=== PATIENT | male | born 1995 | race Hispanic/Latino ===

== ENCOUNTER 2017-08-04 08:59 | Emergency (ER) | payer SELFPAY ==
[~2017-08-04] VITALS: Ht 167.6 cm; Wt 86.2 kg
[2017-08-04] MEDS ORDERED: PANTOPRAZOLE SO40 MG PO (10:16)
[2017-08-04] MEDS ORDERED: DICYCLOMINE HCL10 MG PO (10:16)
--- NOTE | 2017-08-04 20:35 | EKG ---
[facility] [address] [facility] [place] [address] Signed Normal sinus rhythm with sinus arrhythmia Normal ECG No previous ECGs available Confirmed by FANI CHUN MD ([id number]) on 08/04/2017 8:35:22 PM Electronically Signed By: FANI CHUN MD 08/04/17 2035 PATIENT NAME: ISACC JOHNSON Electrocardiogram DATE OF : [birth year] PHYSICIAN: FANI CHUN MD REPORT #: [id number] REPORT IS CONFIDENTIAL AND NOT TO BE RELEASED WITHOUT AUTHORIZATION
== END 2017-08-04 10:30 | disposition home or self-care (01) ==
LOC: ED 08:59
DX: K29.70 Gastritis, unspecified, without bleeding (principal); Z88.0 Allergy status to penicillin
CPT/HCPCS: 71045; 80053; 83690; 84484; 85025; 93005; 93010; 96374; 96375; 99284; J1885

== ENCOUNTER 2017-08-08 06:41 | Observation (INO) | payer SELFPAY ==
[~2017-08-08] VITALS: Ht 167.6 cm; Wt 86.4 kg
[~2017-08-08 06:41] MED LIST: DICYCLOMINE HCL10 MG PO; PANTOPRAZOLE SO40 MG PO
--- NOTE | 2017-08-08 14:55 | NUR ---
REPORT FROM KATHERIN ANN IN E.D. PT TO ROOM 111 AT THIS TIME. PT ALERT AND ORIENTED. PT UP AMBULATED TO BATHROOM INDEPENDENTLY VOIDED WELL. PT RATES PAIN 4/10 HE STATES THAT IS TOLERATED FOR HIM AT THIS TIME.
--- NOTE | 2017-08-08 16:37 | NUR ---
pt reports pain right upper abd 6/10 pain at this time. pt alert and oriented.
--- NOTE | 2017-08-08 18:20 | NUR ---
PT ADMITTED FROM [facility] THIS AFTERNOON. HE HAS BEEN PAINFUL DILAUDID I.V. ADMINSTERED. HERE TO SEE HIM AT THIS TIME, MD ORDERED PUBLIC RELATIONS SUPERVISOR. PLAN FOR SURGERY TOMORROW. HE IS INDEPENDENT IN ROOM, STABLE GAIT, CALLS APPROPRIATLY. HE IS ANXIOUS ABOUT SURGERY, THIS WILL BE HIS FIRST SURGERY. PT EDUCATION GIVEN. UNCLE IN ROOM SINCE ADMISSION. PT MOTHER FLYING IN FROM [place] TOMORROW. PT NPO AFTER MIDNIGHT. PLAN FOR SURGERY TOMORROW
--- NOTE | 2017-08-08 18:22 | NUR ---
PATIENT SITTING UP IN BED WATCHING TV WITH HIS DAD IN ROOM. PATIENT STATES THAT HE IS HUNGRY AND HE NEEDS TO EAT. CLEAR LIQUID TRAY ORDERED FOR PATIENT. FRESH ICE WATER GIVEN. CALL BUTTON IN REACH. NO OTHER NEEDS AT THIS TIME.
--- NOTE | 2017-08-08 19:20 | NUR ---
BEDSIDE REPORT RECEIVED FROM MARISSA MAURO. PT AWAKE, SITTING UP IN BED, RATES PAIN 8/10, VISITING WITH FAMILY. PT RECEIVED PRN DILAUDID IV 0.5 MG. PT CURRENTLY EATING CLEAR LIQUID TRAY. SCDS ON. IVF INFUSING WNL. CALL LIGHT IN REACH. NO REQUESTS AT THIS TIME.
--- NOTE | 2017-08-08 20:00 | NUR ---
PT ASSESSMENT COMPLETE AT THIS TIME, PT CONTINUES TO RATE PAIN 7-8/10 IN LUQ. ABDOMEN SOFT, NON-TENDER W PALPATION, NON-DISTENDED, BOWEL TONES ACTIVE X 4. LUNGS CLEAR THROUGHOUT. PT EDUCATION PROVIDED REGARDING MEDICATIONS, PT ANXIOUS, MINIMAL UNDERSTANDING OF MEDICATIONS, ASKING QUESTIONS. IV FLUSHED WNL. FLAGYL INFUSING. PRN NORCO 1 TABLET PO ADMINISTERED FOR PAIN. SBA TO RESTROOM FOR 350 ML VOID, BACK TO BED, SCDS ON. CALL LIGHT IN REACH.
--- NOTE | 2017-08-08 20:45 | NUR ---
IV FLAGYL COMPLETE. IVF INFUSING AT THIS TIME WNL. PT RATES PAIN 6/10 IN LUQ AT THIS TIME W GOAL OF 5/10. DENIES NAUSEA. SCDS ON. NO REQUESTS AT THIS TIME.
--- NOTE | 2017-08-08 22:14 | NUR ---
CHECKED ON PT. PT RATING PAIN 4/10 IN RIGHT FLANK, LUQ. IVF INFUSING WNL, GOOD BLOOD RETURN. NO REQUESTS AT THIS TIME, CALL LIGHT IN REACH. SCDS ON.
--- NOTE | 2017-08-09 00:16 | NUR ---
SBA TO RESTROOM FOR VOID AND BACK TO BED. PT C/O 10 UPPER ABD PAIN. PRN NORCO ADMINISTERED AT THIS TIME, PT NPO. PT C/O SOME NAUSEA, NO EMESIS. REFUSES PRN ZOFRAN AT THIS TIME "I'M FINE". CALL LIGHT IN REACH. IVF INFUSING, SCDS ON.
--- NOTE | 2017-08-09 02:20 | NUR ---
PT C/O 5-10 PAIN IN LUQ, PRN DILAUDID 0.5 MG IV ADMINISTERED WNL. IV HAS GOOD BLOOD RETURN. IV FLAGYL NOW INFUSING. SBA TO RESTROOM FOR VOID, BACK TO BED, SCDS ON. BOWEL TONES ACTIVE X4, ABDOMEN SOFT, NON-TENDER W PALPATION AT THIS TIME. LUNGS CLEAR THROUGHOUT ALL LOBES. HR REGULAR RHYTHM. CALL LIGHT IN REACH. LIGHTS OFF IN PT ROOM.
--- NOTE | 2017-08-09 03:00 | NUR ---
FLAGYL INFUSION COMPLETE. PT APPEARS TO BE SLEEPING, EYES CLOSED, BREATHING NON-LABORED. CALL LIGHT IN REACH. SCDS ON. IVF INFUSING.
--- NOTE | 2017-08-09 05:53 | NUR ---
PT C/O PAIN 7-8/10 IN LUQ. IV DILAUDID 1MG ADMINISTERED PRN. PT C/O NAUSEA, 8MG ZOFRAN ADMINISTERED VIA IV PUMP OVER 4 MINS. SBA TO RESTROOM AT THIS TIME. IVF INFUSING WNL.
--- NOTE | 2017-08-09 06:26 | NUR ---
PT NPO AT MIDNIGHT. BOWEL TONES ACTIVE X 4, ABDOMEN SOFT THROUGHOUT SHIFT. NO EMESIS. RECEIVED PRN ZOFRAN X 1 FOR PT REPORTED NAUSEA. PT RECEIVED PRN NORCO X2 AND IV DILAUDID X 2 FOR PAIN CONTROL. IVF INFUSING WNL THROUGHOUT SHIFT. SCDS ON. USING CALL LIGHT APPROPRIATELY. SBA TO RESTROOM FOR QUANTITY SUFFICIENT VOIDS. ANXIOUS RE SURGERY AND ASKING MANY QUESTIONS THROUGHOUT SHIFT, EDUCATION PROVIDED.
--- NOTE | 2017-08-09 07:46 | NUR ---
PATIENT HAS ABDOMINAL PAIN CURRENTLY AT A /, 1MG OF DILAUDID GIVEN IV AT THIS TIME. PATIENT IS ALERT AND ORIENTED AT THIS TIME, REPORT RECEIVED FROM GEOVANNA ANN. RHONDA SCHILLING AND MARK.
--- NOTE | 2017-08-09 08:11 | CONS ---
[facility] [address] [place], [place] [address] Signed DATE OF CONSULTATION: 08/08/2017 REFERRING PHYSICIAN: Kiet Wen DO CHIEF COMPLAINT: Left upper quadrant abdominal pain. HISTORY OF PRESENT ILLNESS: Isacc is a 22-year-old gentleman who is generally quite healthy; however, over the last week or so he has had trouble with rather significant left upper quadrant abdominal pain. He said it is worse after meals. He has been anorexic and unable to eat. He said to his recollection he has had some trouble for up to a year, but the last week or so it has been horrible. He came to emergency room on 08/04/2017, was evaluated and discharged home. He came back today because the pain was so persistent, and severe. White count was borderline 11. His other labs were fine. He had a CT scan done of the abdomen, and pelvis, and it showed the gallbladder full of stones and sludge with an unremarkable common bile duct, and unremarkable wall. There was no pericholecystic fluid. However, because of his pain, I was asked to admit him as a general surgeon on-call. He has been doing well with his IV pain medication. We gave him some Rocephin and Flagyl earlier today. PAST MEDICAL HISTORY: None. PAST SURGICAL HISTORY: None. SOCIAL HISTORY: He does not smoke or drink. 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 His mother is Vera Ambriz, phone #[phone], which I believe is [place]. He is single and has no children. Of course, he drives. He has no primary care provider. He prefers the [facility] in [place]. FAMILY HISTORY: Mom and dad and siblings are all healthy. REVIEW OF SYSTEMS: He had 10 systems reviewed and there was nothing new to add. ALLERGIES: Penicillin as a child. Electronically Signed By: SRIRAM SALAZAR MD 08/09/17 0811 PATIENT NAME: ISACC AMBRIZ CONSULTATION DATE OF : [birth year] REPORT #: [id number] PHYSICIAN: SRIRAM SALAZAR MD PCP: NO PRIMARY CARE PHYSICIAN REPORT IS CONFIDENTIAL AND NOT TO BE RELEASED WITHOUT AUTHORIZATION [facility] [address] [place], [place] [address] Signed MEDICATIONS: He was given Protonix and dicyclomine at his last ER visit. PHYSICAL EXAMINATION: VITAL SIGNS: Blood pressure 133/84, heart rate 67, respiratory rate 16, his temperature is 98.7. He is 99% on room air, he is 5 feet 6 inches, and weighs 86 kg. GENERAL: On exam, Isacc is a 22-year-old gentleman lying supine in his hospital bed, watching TV. He said he has been using the IV pain medication about every 2 hours. He is not jaundiced. LUNGS: Clear to auscultation bilaterally. HEART: Regular rate and rhythm and rhythm. Interestingly he is tender to deep palpation in the right upper quadrant with some mild tenderness in his left upper quadrant. LABORATORY DATA: His white blood count 11, hemoglobin 16, neutrophils 74, BUN 12, creatinine 0.8. AST 18, ALT 22, alkaline phosphatase 67, amylase 34, lipase 13. RADIOGRAPHIC STUDIES: A CT scan of abdomen, and pelvis is reviewed, and he has a gallbladder full of stones and sludge, but the gallbladder wall was not particularly thickened. The common bile duct was unremarkable, and there is no pericholecystic fluid. ASSESSMENT AND PLAN: Isacc is a 22-year-old gentleman who presents with beyub-jn-ioejeid cholecystitis, cholelithiasis. He has been admitted, given IV fluids, antibiotics, IV pain control as well. Overall, he is doing better. He said he is still a little dry, and his lips are certainly dry. I brought him a [employer] brochure on the gallbladder. We looked at that in detail. I explained to him the above findings with relationship to the gallbladder. We have reviewed laparoscopic versus open cholecystectomy. He understands, expected intraop and postop course, though are finished elective cases about just after five and they are now doing neurologic on-call urologic cases. Consequently, we are going to keep Isacc overnight. We will hydrate him with his pain control. We are going to add him on to our schedule 1st thing in the morning. He has expressed understanding, agrees about plan. Sriram Salazar MD ALB/MODL Electronically Signed By: SRIRAM SALAZAR MD 08/09/17 0811 PATIENT NAME: ISACC AMBRIZ CONSULTATION DATE OF : [birth year] REPORT #: [id number] PHYSICIAN: SRIRAM SALAZAR MD PCP: NO PRIMARY CARE PHYSICIAN REPORT IS CONFIDENTIAL AND NOT TO BE RELEASED WITHOUT AUTHORIZATION [address] [address] Signed /[id number] cc: Sriram Salazar MD Copies: SRIRAM SALAZAR MD ~ Electronically Signed By: SRIRAM SALAZAR MD 08/09/17 0811 PATIENT NAME: ISACC AMBRIZ CONSULTATION DATE OF : [birth year] REPORT #: [id number] PHYSICIAN: SRIRAM SALAZAR MD PCP: NO PRIMARY CARE PHYSICIAN REPORT IS CONFIDENTIAL AND NOT TO BE RELEASED WITHOUT AUTHORIZATION
--- NOTE | 2017-08-09 08:49 | NUR ---
PATIENT DENIES ANY PAIN AT THIS TIME.
--- NOTE | 2017-08-09 08:50 | NUR ---
PATIENT RESTING IN BED WITH HIS DAD IN ROOM. RN IN ROOM. NO OTHER NEEDS AT THIS TIME.
--- NOTE | 2017-08-09 09:47 | NUR ---
PATIENT RESTING IN BED. PATIENT REFUSED SHOWER AT THIS TIME BUT WILL SHOWER AROUND NOON BEFORE SURGERY. CALL BUTTON IN REACH. PATIENTS DAD IN ROOM. NO OTHER NEEDS AT THIS TIME.
--- NOTE | 2017-08-09 09:48 | NUR ---
PATIENT REFUSING TO TAKE A SHOWER AT THIS TIME, HE WOULD LIKE TO WAIT UNTIL HE KNOWS THE TIME FOR SURGERY, PATIENT HAS NO C/O PAIN AT THIS TIME.
--- NOTE | 2017-08-09 10:44 | NUR ---
PATIENT TAKEN TO SURGERY AT THIS TIME, PREOP WIPES COMPLETED AND PATIENT ON STRAIT TUBING.
--- NOTE | 2017-08-09 13:56 | NUR ---
08/09/17 1356 Rebecca Williamson 1340 PT ARRIVED TO PACU WITH ORAL AIRWAY IN PLACE, RN DOING CHIN THRUST TO MAINTAIN AIRWAY, ON 10L VIA MASK. SHALLOW BREATHS NOTED. PT HAS FOUR LAP SITES WITH BUFFY DRAIN IN PLACE. 1342 O2 DECREASED TO 6L VIA MASK. PT NONAROUSABLE TO VERBAL OR PAINFUL STIMULI.
--- NOTE | 2017-08-09 16:00 | NUR ---
PATIENT RESTING IN BED. FAMILY IN ROOM. FRESH ICE WATER GIVEN. CALL BUTTON IN REACH NO OTHER NEEDS AT THIS TIME.
--- NOTE | 2017-08-09 16:00 | NUR ---
PATIENT TX FROM PACU TO ROOM 111 ON OXYGEN AT 2L PER NC. PATIENT IS ALERT AND ORIENTED BUT STILL A LITTLE SLEEPY FROM SURGERY. HE WAS 2 PERSON ASSISTED INTO THE BATHROOM AND ABLE TO VOID 100MLS OF CLEAR YELLOW URINE. HE DENIES ANY DIZZINESS WHILE UP AMBULATING. PATIENT DRESSINGS TO HIS ABDOMEN ARE CDI WITH SILK TAPE, SOME DRAINAGE NOTED AROUND THE BUFFY SITE DRESSING. PATIENT DENIES ANY PAIN AT THIS TIME.
--- NOTE | 2017-08-09 17:00 | NUR ---
PATIENT BACK TO BED FROM BATHROOM. NO NEEDS AT THIS TIME. CALL BUTTON IN REACH.
--- NOTE | 2017-08-09 17:35 | NUR ---
POST OP VITALS TAKEN, PATIENT ASSISTED UP TO THE BATHROOM TO VOID.
--- NOTE | 2017-08-09 17:55 | NUR ---
PATIENT UP TO VOID. CHICKEN BROTH GIVEN. PATIENT RATES HIS ABD PAIN 5/10 AND DENIES NEED FOR PAIM MEDICATION AT THIS TIME.
--- NOTE | 2017-08-09 18:46 | NUR ---
PATIENT TEMP ORALY AT THIS TIME 100.3, PATIENT HAS ATTEMPTED TO USE THE IS TO LOWER HIS FEVER, TYLENOL 650MG PO GIVEN AT THIS TIME.
--- NOTE | 2017-08-09 19:20 | NUR ---
PT UP TO BATHROOM WITH 1 PERSON ASSIST. HE REPORTS INCREASED PAIN WITH ACTIVITY. ICE TO SURGERY SITE
--- NOTE | 2017-08-09 20:32 | NUR ---
ASSISTED PT BACK FROM BATHROOM, VOIDING WITHOUT DIFFICULTY. DENIED NAUSEA. PT PRIMARY RN IN ROOM WITH MEDICATION. PT BACK TO BED WITH ASSISTANCE.
--- NOTE | 2017-08-09 20:45 | NUR ---
PT GIVEN ON TAB NORCO PO PRN FOR PAIN 6/10 AT THIS TIME. WILL MONITOR FOR EFFECT.
--- NOTE | 2017-08-10 02:10 | NUR ---
PT RESTING QUIELTY IN BED EYES CLOSED RR EVEN 16 BPM, ALERT TO NAME REPOSITIONS IN BED REPORTS PAIN 5/10. ONE TAB NORCO ADMINISTERED AT THIS TIME WITH HUNTER RAMSEY. TEMP WNL. V/S STABLE. NO CONCERNS AT THIS TIME
--- NOTE | 2017-08-10 04:41 | NUR ---
PT HAS BEEN UP TO BATHROOM FREQUENTLY OVER SHIFT. PAIN WELL MANAGED WITH ONE TAB NORCO GIVEN TWO TWICE OVER SHIFT. BUFFY DRAINING SMALL AMOUNT OF SEROSANGUINOUS OVER SHIFT. HE HAS SLEEPED WELL. UP TO VOID FREQUENT AT START OF SHIFT. TOELRATING CLEAR LIQUID DIET WELL NO NAUSEA.
--- NOTE | 2017-08-10 05:48 | OR ---
[facility] [address] [place], [place] [address] Signed DATE OF OPERATION: 08/09/2017 SURGEON: Sriram Hull MD PREOPERATIVE DIAGNOSIS: Euipu-xp-dxomynu cholecystitis with cholelithiasis. POSTOPERATIVE DIAGNOSIS: Wdyxr-ju-pmeutsf cholecystitis with cholelithiasis. PROCEDURES: 1. Laparoscopic cholecystectomy without intraoperative cholangiogram (prolonged and difficult at 1 hour 30 minutes). 2. Subhepatic drain placement. ESTIMATED BLOOD LOSS: Minimal. FINDINGS: Isacc clearly had acute on chronic inflammatory changes to the gallbladder, particularly the neck and the triangle of Calot. He had stones impacted in the neck of the gallbladder and it took additional time to dissect out the neck of the gallbladder in the triangle of Calot. There was a stricture just above the neck of the gallbladder and he had stones above that as well. We had very carefully dissected through this area. We never did find the cystic duct, although we clearly found the cystic artery. Consequently, we left the drain in place after the surgery in the hepatic bed. However, we did irrigate that area significantly and we found no egress of bile. We did have an extra nurse scrub in to help hold the gallbladder up and other way as we worked. All these things taken together made this case prolonged and difficult. INDICATIONS: Isacc is a 22-year-old young man who said for probably a little year he has had left upper quadrant and some right upper quadrant chest pain. He said it is worse after meals. It got worse the last week or so and he ended up in the emergency room twice. He finally came back because the pain was too severe. His white count was borderline at 11, and his liver function tests were fine. Amylase and lipase were fine. However, today, AST and ALT did go up. We had admitted him to the hospital and hydrated him and given pain control along with Rocephin and Flagyl. He had a CT scan in the ER and it looked like the gallbladder was full of stones and sludge. The gallbladder wall did not appear particularly thick to the radiologist, but on my read, it looked a little Electronically Signed By: SRIRAM HULL MD 08/10/17 0548 PATIENT NAME: ISACC JOHNSON OPERATIVE REPORT DATE OF : [birth year] REPORT #: [id number] PHYSICIAN: SRIRAM HULL MD PCP: NO PRIMARY CARE PHYSICIAN REPORT IS CONFIDENTIAL AND NOT TO BE RELEASED WITHOUT AUTHORIZATION [facility] [address] [place], [place] [address] Signed thickened. The common bile duct seems unremarkable. No obvious pericholecystic fluid. I had met with Isacc and his uncle and we had a long discussion regarding the location and function of the gallbladder. I gave him a [employer] brochure as well and we looked at the pictures together. We discussed laparoscopic versus open cholecystectomy. He understands expected intraop and postop course. There is risk of surgery including, but not limited to bleeding, infection, scarring, change in contour of the skin as well as damage to bowel, damage to main bile duct, incisional hernias and other unforeseen comorbidities. He had expressed understanding and wished to proceed. We hope to do the procedure last evening, but there was a urologic case and two babies were delivered and therefore we had no access to the OR or staff. Consequently, we were bumped and we put Isacc on our schedule today. PROCEDURE NOTE: Isacc was taken into the operating room and placed in the supine position under general endotracheal tube anesthesia. He was on preoperative antibiotics along with subcutaneous heparin. SCDs were utilized. He was then prepped and draped in the usual sterile fashion. All trocars were placed in usual positions under direct visualization of camera without difficulty. We could immediately see the gallbladder was quite tense and the color was becoming oneida in nature. We made a small hole in the top of the gallbladder and suctioned out the bile just so we could grasp the gallbladder and hold it into the right upper quadrant. We took down some adhesions as we headed down the gallbladder. We started at about the midportion of gallbladder and started to work our way down and peel down the inflamed surrounding fat. We found that there was a bit of a stricture there and then the gallbladder came out laterally and inferiorly, and was full of stones and they were impacted. It took additional time to dissect that free and we came around very carefully and slowly and yet we never did find the cystic duct. We did find the cystic artery. We placed two clips and divided it. We continued to look very carefully as we went along the wall of the gallbladder back towards the liver and we never did find the cystic duct. Consequently, it must be quite small. We slowly, but surely took the gallbladder off the gallbladder wall with the cautery and after due time, we had it free and placed into an EndoCatch bag. With the difficulty of the case, we did have another nurse scrub in to help hold retractors. Once the gallbladder was free, we copiously irrigated out the right upper quadrant and suctioned that out until clear. We never saw any egress of bile, but nevertheless we placed a #10 flat Gregorio drain in the gallbladder fossa and brought that out through the right most lateral 5 mm trocar site. It was held in place at the skin with a 2-0 nylon suture. We placed the gallbladder into an EndoCatch bag and we were able to pull it out through the umbilical fascial defect. The subxiphoid trocar site had been closed with our laparoscopic suturing device with 0 Vicryl suture and tied down to close that fascia primarily. After this, all the gas was allowed to escape and the remaining trocars were removed. Our circulating nurse opened the gallbladder on the back table and the findings are as above. We had taken pictures throughout for photodocumentation. It was quite Electronically Signed By: SRIRAM HULL MD 08/10/17 0548 PATIENT NAME: ISACC JOHNSON OPERATIVE REPORT DATE OF : [birth year] REPORT #: [id number] PHYSICIAN: SRIRAM HULL MD PCP: NO PRIMARY CARE PHYSICIAN REPORT IS CONFIDENTIAL AND NOT TO BE RELEASED WITHOUT AUTHORIZATION [facility] [address] [place], [place] [address] Signed impressive. The bottom one-third of the gallbladder was basically black with impacted stones in the neck and a stricture above it. There were at least 7 stones that we could find. After this, we closed the fascia of the supraumbilical trocar site with interrupted 0 Vicryl sutures. Local anesthetic was copiously injected into all trocar sites. Each trocar site was irrigated and suctioned out until clear. The skin and dermis of each trocar site were then closed with interrupted 3-0 subcuticular Monocryl sutures. Dry gauze and tape were then applied to all incisions. Isacc was then awakened from his anesthesia, extubated in the OR, and taken to recovery room in stable condition. Sriram Hull MD ALB/MODL /[id number] cc: Sriram Hull MD Copies: SRIRAM HULL MD ~ Electronically Signed By: SRIRAM HULL MD 08/10/17 0548 PATIENT NAME: ISACC JOHNSON OPERATIVE REPORT DATE OF : [birth year] REPORT #: [id number] PHYSICIAN: SRIRAM HULL MD PCP: NO PRIMARY CARE PHYSICIAN REPORT IS CONFIDENTIAL AND NOT TO BE RELEASED WITHOUT AUTHORIZATION
--- NOTE | 2017-08-10 06:36 | NUR ---
ROUNDED ON PT AND DISCUSSED PLAN OF CARE AND PLAN FOR DISCHARGE TODAY
[2017-08-10] MEDS ORDERED: NORCO 5-325 TA1 EACH PO ×2 (07:50→07:56)
[2017-08-10] MEDS ORDERED: PROMETHAZINE HC25 M1 PO ×2 (07:51→07:57)
--- NOTE | 2017-08-10 08:35 | NUR ---
patient resting in bed. patient tolerating regular diet well. no nausea at this time. patient currently rating pain 5/10. patient had one norco at 0600. mother in room. morning medication given. patient educated about tk drain. flow sheet given to patient. education about stripping and recording output. side effects of pain medication given to patient. patient reminded that he might need to take a stool softener at home. patient encouraged to get up and void in room. plan made to ambulate in [place] after pain medication. patient has lap sites wnl. tk sire is wnl. new gauze placed around tubing. small amount of ser. sang drainage present. patient has scds in place. patient is due to void for me this morning.
--- NOTE | 2017-08-10 09:31 | DS ---
[facility] [address], [place] [address] Signed ADMISSION DATE: 08/08/2017 DISCHARGE DATE: 08/10/2017 FINAL DIAGNOSIS: Severe acute on chronic cholecystitis with cholelithiasis. PROCEDURES: 1. Laparoscopic cholecystectomy without intraoperative cholangiogram. 2. Subhepatic drain placement. 3. CT scan of abdomen and pelvis. HISTORY OF PRESENT ILLNESS: Taiwo is a 22-year-old gentleman who has had trouble for a year with actually left upper quadrant abdominal pain and sometimes right upper quadrant abdominal pain. He said the last 10 days or so has been really bad. He said it is worse after meals and he has been having trouble eating. He finally came to emergency room for evaluation. He seemed to be tender in both the right upper and left upper quadrants. White count was borderline at 11. Initially, the liver function tests were fine, but by the following day, they were elevated. He had a CT scan of the abdomen and pelvis performed and it showed his gallbladder full of stones and sludge with an unremarkable common bile duct. There did not appear to be any wall thickening or pericholecystic fluid on the CT scan according to the radiologist. I have been asked to admit Taiwo as above. HOSPITAL COURSE: Taiwo was admitted as above, started on Rocephin and Flagyl, given IV fluids and pain control. He had significant nausea requiring Phenergan. I met with Taiwo and his uncle and I brought them a [employer] brochure on the gallbladder. We looked at that together in detail and we took him to the operating room the next morning because we were brought in by our urologist in the delivery of two babies during the night. The next day, he underwent a prolonged and difficult laparoscopic cholecystectomy without intraoperative cholangiogram. The procedure took 1 hour 30 minutes, which is at least 40-60 minutes longer than usual. We left a drain in the subhepatic space. We clipped the cystic artery twice, but we have never found the cystic duct. His gallbladder was packed with stones in the neck and completely obstructed and with lots of bile and sludge in the gallbladder. The half of the gallbladder was black around the neck. Consequently, we kept him overnight with ongoing IV fluids, pain control, antibiotics and Phenergan for his nausea. This morning, he looks and feels much better. He is tolerating his clear liquids. The pain is much improved. He has a little bit of thin serosanguineous fluid out the drain. There was no bile. All incisions are unremarkable. His mom has made it up from [place] and she is with him this morning. Electronically Signed By: SRIRAM HULL MD 08/10/17 0931 PATIENT NAME: TAIWO JOHNSON DISCHARGE SUMMARY DATE OF : [birth year] REPORT #: [id number] PHYSICIAN: SRIRAM HULL MD PCP: NO PRIMARY CARE PHYSICIAN REPORT IS CONFIDENTIAL AND NOT TO BE RELEASED WITHOUT AUTHORIZATION [facility] [address], [place] [address] Signed DISCHARGE PLANS AND MEDICATIONS: Taiwo was doing well, so we are going to increase his diet and leave the drain in place and remove all his dressings and let him shower. We are assuming he is going to do fine and we will let him go home later this morning. I reviewed all the findings with Taiwo and his mother. We have also written him for [place] 5/325 1 to 2 tablets p.o. q.4-6 hours p.r.n. pain. We will dispense 50 tablets without refills and we will give him Phenergan 25 mg p.o. q.8 hours p.r.n. for nausea and vomiting. We will dispense 10 tablets with no refills. He is going to shower and bathe as usual. Take diet as tolerated. We will keep him off work. He should not do any heavy pushing, pulling, or lifting over 20 pounds. We will have him record the drain output each day and we will see him back in the office in a week or so. Taiwo and his mom had expressed understanding and agreed the above plan. Sriram Hull MD ALB/MODL /[id number] cc: Sriram Hull MD Copies: SRIRAM HULL MD ~ Electronically Signed By: SRIRAM HULL MD 08/10/17 0931 PATIENT NAME: TAIWO JOHNSON DISCHARGE SUMMARY DATE OF : [birth year] REPORT #: [id number] PHYSICIAN: SRIRAM HULL MD PCP: NO PRIMARY CARE PHYSICIAN REPORT IS CONFIDENTIAL AND NOT TO BE RELEASED WITHOUT AUTHORIZATION
--- NOTE | 2017-08-10 10:00 | NUR ---
patient given 2 tabs norco for pain medication. current pain rating 6/10. patient agreed to ambulate in [place] in 30 minutes. patient asking about urine. urine is currently dark tea color. updated and information given to patient. encouraged po.
--- NOTE | 2017-08-10 10:36 | NUR ---
nataliejoseph tolerated 4 laps in [place]. patient stating a little sore but tolerating well. mother in room to assist in encouraging patient.
--- NOTE | 2017-08-10 11:15 | NUR ---
patient given discharge education work release given to patient. patient was able to demonstrate proper tk stipping and empting. mother in room to assist patient and hear discharge education. patient requesting to wait for lunch.
== END 2017-08-10 12:05 | disposition home or self-care (01) ==
LOC: ED 06:41 → MS 06:42 → ED 14:36 → MS 14:36
PROVIDERS: ADMIT Colon & Rectal Surgery
PROC: 0FT44ZZ Resection of Gallbladder, Percutaneous Endoscopic Approach (ICD-10-PCS; principal; 2017-08-09 10:30)
DX: K80.12 Calculus of gallbladder with acute and chronic cholecystitis without obstruction (principal); Z88.0 Allergy status to penicillin
CPT/HCPCS: 00790; 36415; 74176; 80053; 81001; 82150; 83690; 83735; 84100; 85025; 94762; 96361; 96372; 96374; 96375; 96376; 99285; G0378; J0330; J0696; J1100; J1170; J1644; J1885; J2250; J2405; J2550; J2704; J2710; J2765; J3010; J7120